=== PATIENT | male | born 1955 | race Caucasian/White ===

== ENCOUNTER → 2023-10-21 12:18 | Outpatient (REF) | payer MEDICARE, OTHER, SELFPAY | LOC: RAD 12:18 | PROVIDERS: ATTENDING PHYSICIAN Family Medicine | DX: R91.8 Other nonspecific abnormal finding of lung field (principal) | CPT/HCPCS: 71270; Q9967 ==

== ENCOUNTER → 2023-11-16 11:20 | Outpatient (REF) | payer MEDICARE, OTHER, SELFPAY | LOC: RAD 11:20 | PROVIDERS: ATTENDING PHYSICIAN Otolaryngology; FAMILY PHYSICIAN Internal Medicine | DX: K11.5 Sialolithiasis (principal) | CPT/HCPCS: 70490 ==

== ENCOUNTER → 2023-11-30 12:43 | Day surgery (SDC) | payer MEDICARE, OTHER, SELFPAY | LOC: SDSPAT 12:43 | PROVIDERS: ATTENDING PHYSICIAN Otolaryngology; FAMILY PHYSICIAN Internal Medicine | DX: Z01.810 Encounter for preprocedural cardiovascular examination (principal); Z01.812 Encounter for preprocedural laboratory examination | CPT/HCPCS: 93005; 36415 ==

== ENCOUNTER 2023-12-09 06:18 | Day surgery (SDC) | payer MEDICARE, OTHER, SELFPAY ==
[2023-11-30 13:03] VITALS: BMI 23.4
[2023-12-09] VITALS (10 sets, daily range): BP systolic 91–120; BP diastolic 68–85; BMI 23.4
[2023-12-09] MEDS: TYLENOL 1000 MG PO (08:43)
== END 2023-12-09 13:43 | disposition home or self-care (01) ==
LOC: SDS 06:18
PROVIDERS: ATTENDING PHYSICIAN Otolaryngology; FAMILY PHYSICIAN Internal Medicine
DX: K11.5 Sialolithiasis (principal)
CPT/HCPCS: 42440; 88307

== ENCOUNTER → 2024-12-02 07:47 | Outpatient (REF) | payer MEDICARE, OTHER, SELFPAY | LOC: RAD 07:47 | PROVIDERS: ATTENDING PHYSICIAN Internal Medicine | DX: R91.1 Solitary pulmonary nodule (principal) | CPT/HCPCS: 71270; Q9967 ==